=== PATIENT | male | born 1970 | race Caucasian/White ===

== ENCOUNTER 2016-09-06 15:31 | Emergency (ER) | payer SELFPAY ==
[~2016-09-06] VITALS: Ht 172.7 cm; Wt 63.0 kg
[~2016-09-06 15:31] MED LIST: BACT800T5 PO
[2016-09-06 15:34] VITALS: BP 120/69; PULSE 103; RESP 18; TEMP 98; O2SAT 95
--- NOTE | 2016-09-06 15:56 | PD ---
HPI Chief Complaint: Pain: Acute or Chronic Time Seen by Provider: 15:55 Travel History International Travel<30 days: No Contact w/Intl Traveler<30days: No Traveled to known affect area: No History of Present Illness HPI 46-year-old male presents to the emergency room for evaluation of intermittent left plantar foot pain for the past 1.5 years. Patient states it occurs randomly when he is stepping. States it feels as though he is stepping on an electrical wire which shoots pain and dentist. Occasionally he massages the area and it feels better. Symptoms always pushing on a can feel a clicking. He has not taken anything or done anything for his symptoms. PFSH Past Medical History Arthritis: No Asthma: No Autoimmune Disease: No Blood Disorders: No Anxiety: No Depression: No Heart Rhythm Problems: No Cancer: No Cardiovascular Problems: No High Cholesterol: No Chemotherapy: No Chest Pain: No Congestive Heart Failure: No COPD: No Diabetes: No Diminished Hearing: Yes (left ear) Endocrine: No GERD: Yes Glaucoma: No Genitourinary: No Headaches: No Hepatitis: Yes ( HAS HEP C, PT SHARES NEEDLES WITH HER) Hiatal Hernia: No Hypertension: No Immune Disorder: No Kidney Stones: No Musculoskeletal: No Neurologic: No Psychiatric: No Reproductive: No Respiratory: No Immunizations Current: No Migraines: No Myocardial Infarction: No Radiation Therapy: No Renal Failure: No Seizures: No Sleep Apnea: No Thyroid Disease: No Ulcer: No PNEUMOCCOCAL Vaccine (Year): 0 Past Surgical History Abdominal Surgery: No AICD: No Appendectomy: No Arteriovenous Shunt: No Cardiac Surgery: No Cholecystectomy: No Ear Surgery: No Endocrine Surgery: No Eye Surgery: Yes (RIGHT ORBIT, RIGHT CHEEK) Genitourinary Surgery: No Gynecologic Surgery: No Insulin Pump: No Joint Replacement: No Neurologic Surgery: No Oral Surgery: No Pacemaker: No Other Surgery: Yes (FACIAL) Social History Alcohol Use: Yes (6 PK/WEEK) Tobacco Use: Yes (1 PPD) Substance Use: Yes (IV DILAUDID, SHARES NEEDLES WITH WHO HAS HEP C) Allergies-Medications (Allergen,Severity, Reaction): Coded Allergies: No Known Allergies (Verified , 09/06/16) Reported Meds & Prescriptions Reported Meds & Active Scripts Active No Active Prescriptions or Reported Medications Review of Systems Except as stated in HPI: all other systems reviewed are Neg Physical Exam Narrative GENERAL: Well-nourished, well-developed male in no acute distress. Afebrile. Ambulatory. SKIN: Focused skin assessment warm/dry. HEAD: Normocephalic. EYES: No scleral icterus. No injection or drainage. NECK: Supple, trachea midline. No JVD or lymphadenopathy. CARDIOVASCULAR: Regular rate and rhythm without murmurs, gallops, or rubs. RESPIRATORY: Breath sounds equal bilaterally. No accessory muscle use. MUSCULOSKELETAL: No cyanosis, or edema. Full range motion of the foot. Less than 2 second capillary refill distally. No tenderness to palpation of the plantar left foot. Negative Orin's sign. Data Data Last Documented VS Vital Signs Date Time Temp Pulse Resp B/P Pulse Ox O2 Delivery O2 Flow Rate FiO2 09/06/16 15:34 98.0 103 18 120/69 95 MDM Medical Decision Making Medical Screen Exam Complete: Yes Emergency Medical Condition: Yes Medical Record Reviewed: Yes Differential Diagnosis Roy neuroma, metatarsalgia, plantar fasciitis Narrative Course 46-year-old male presents to the emergency room for intermittent sharp, burning , stabbing pain localized to below the left fourth toe that has been occurring for the past 1.5 years. Physical exam is unremarkable. Left lower extremity is neurovascularly intact. Negative Orin''s sign. Physical and history exam consistent with Roy's neuroma. Patient reassured and told to follow-up with the rotary drier for steroid injections if symptoms persist. He understands and agrees to plan. Diagnosis Primary Impression: Roy's neuroma of right foot Referrals: Primary Care Physician Patient Instructions: General Instructions, Roy Neuroma (ED) Additional Instructions: Rest and drink plenty of fluids. Take ibuprofen with food as directed, as needed for pain. Apply ice to the affected area for 20 minutes at a time, as needed for pain and swelling. Follow-up with a rotary drier for steroid injections if symptoms persist. Return to the emergency room for worsening symptoms. Med/Other Pt SpecificInfo: Prescription(s) given Scripts No Active Prescriptions or Reported Meds Disposition: 01 DISCHARGE HOME Condition: Stable Kathy Ellison Sep 06, 2016 15:56
== END 2016-09-06 16:03 | disposition home or self-care (01) ==
LOC: PHEFT 15:31
DX: G57.61 Lesion of plantar nerve, right lower limb (principal)
CPT/HCPCS: 99282